=== PATIENT | male | born 1940 | race Caucasian/White ===

== ENCOUNTER → 2016-08-21 | Outpatient (CLI) | payer MEDICARE, OTHER ==
[2016-08-21 12:06] LABS: Urine Bilirubin Negative (Negative); Urine Blood Negative /uL (Negative); Urine Color Yellow (Yellow); Urine Glucose Normal (Normal); Urine Ketone Negative (Negative); Urine Nitrite Negative (Negative); Urine Urobilinogen Normal (Negative)
[2016-08-21 12:13] LABS: Basophils # (auto) 0.1 uL; Eosinophils # (auto) 0.3 uL; Eosinophils % (auto) 7.2 % (0.0-7.0); Hematocrit 43.7 % (41.0-53.0); Hemoglobin 14.4 g/dL (13.5-17.5); Lymphocytes # (auto) 1.3 uL; Lymphocytes % (auto) 32.8 % (10.0-50.0); Mean Corpuscular Hemoglobin 30.7 pg (28.0-32.0); Mean Corpuscular Volume 93.1 fL (80.0-100.0); Mean Platelet Volume 8.7 fL (7.4-10.4); Monocytes # (auto) 0.2 uL; Monocytes % (auto) 6.1 % (0.0-12.0); Neutrophils # (auto) 2.1 uL; Neutrophils % (auto) 51.9 % (37.0-80.0); Platelet Count (auto) 249 10^3/uL (140-450); Red Cell Distribution Width 13.1 % (11.6-16.0)
[2016-08-21 12:38] LABS: Albumin 3.9 g/dL (3.4-5.0); BUN/Creatinine Ratio 11.9; Bilirubin, Direct 0.2 mg/dL (0-0.2); Bilirubin, Total 1.1 mg/dL (0.2-1.0); Calcium 8.5 mg/dL (8.5-10.1); Total Protein 6.6 g/dL (6.4-8.2)
== END | disposition home or self-care (01) ==
LOC: LAB 09:12
PROVIDERS: ATTEND Internal Medicine Cardiovascular Disease
DX: I10 Essential (primary) hypertension (principal); E78.00 Pure hypercholesterolemia, unspecified; K74.1 Hepatic sclerosis; R53.81 Other malaise; E03.9 Hypothyroidism, unspecified; D64.9 Anemia, unspecified; E55.9 Vitamin D deficiency, unspecified; N39.0 Urinary tract infection, site not specified
CPT/HCPCS: 36415; 80048; 80061; 80076; 81003; 82306; 83036; 84403; 84443; 85025

== ENCOUNTER → 2016-10-30 | Outpatient (CLI) | payer MEDICARE, OTHER | END | disposition home or self-care (01) | LOC: LAB 09:12 | PROVIDERS: ATTEND Internal Medicine Cardiovascular Disease | DX: R97.20 Elevated prostate specific antigen [PSA] (principal) | CPT/HCPCS: 84153 ==

== ENCOUNTER → 2017-05-08 | Outpatient (CLI) | payer MEDICARE, OTHER | END | disposition home or self-care (01) | LOC: Rad HDHVI 08:31 | PROVIDERS: ATTEND Internal Medicine Cardiovascular Disease | DX: M47.897 Other spondylosis, lumbosacral region (principal); M46.07 Spinal enthesopathy, lumbosacral region; M25.78 Osteophyte, vertebrae | CPT/HCPCS: 72100 ==

== ENCOUNTER → 2017-08-03 | Outpatient (CLI) | payer MEDICARE, OTHER ==
[2017-08-03 12:30] LABS: Basophils # (auto) 0.1 uL; Basophils % (auto) 1.5 % (0.0-2.0); Eosinophils # (auto) 0.2 uL; Eosinophils % (auto) 3.7 % (0.0-7.0); Hematocrit 44.2 % (41.0-53.0); Hemoglobin 14.6 g/dL (13.5-17.5); Lymphocytes # (auto) 1.1 uL; Lymphocytes % (auto) 24.7 % (10.0-50.0); Monocytes # (auto) 0.3 uL; Monocytes % (auto) 6.3 % (0.0-12.0); Neutrophils % (auto) 63.8 % (37.0-80.0); Nucleated Red Blood Cells % 0.6 %; Platelet Count (auto) 219 10^3/uL (140-450); Red Cell Distribution Width 13.4 % (11.8-14.3); White Blood Cell 4.6 10^3/uL (4.4-10.8)
[2017-08-03 12:33] LABS: Urine Blood Negative /uL (Negative); Urine Specific Gravity 1.019 (1.001-1.035)
[2017-08-03 14:05] LABS: Albumin 3.8 g/dL (3.4-5.0); Bilirubin, Direct 0.3 mg/dL (0-0.2); Bilirubin, Total 1.6 mg/dL (0.2-1.0); Calcium 9.1 mg/dL (8.5-10.1); Potassium 4.2 mmol/L (3.5-5.1); Total Protein 6.8 g/dL (6.4-8.2)
[2017-08-03 14:55] LABS: Free T4 (Free Thyroxine) 1.26 ng/dL (0.89-1.76); Prostate Specific Antigen 0.16 ng/mL (0.0-4.0)
== END | disposition home or self-care (01) ==
LOC: LAB 08:32
PROVIDERS: ATTEND Internal Medicine Cardiovascular Disease
DX: I10 Essential (primary) hypertension (principal); B00.9 Herpesviral infection, unspecified; E78.00 Pure hypercholesterolemia, unspecified; R53.81 Other malaise; D64.9 Anemia, unspecified; E11.9 Type 2 diabetes mellitus without complications; E55.9 Vitamin D deficiency, unspecified; E03.9 Hypothyroidism, unspecified; K74.1 Hepatic sclerosis; R97.20 Elevated prostate specific antigen [PSA]; D51.9 Vitamin B12 deficiency anemia, unspecified; N39.0 Urinary tract infection, site not specified
CPT/HCPCS: 36415; 80048; 80061; 80076; 81003; 82306; 82607; 83036; 84153; 84403; 84439; 84443; 85025; 86695; 86696

== ENCOUNTER → 2018-02-18 | Outpatient (CLI) | payer MEDICARE, OTHER ==
[2018-02-18 12:54] LABS: Free T4 (Free Thyroxine) 1.23 ng/dL (0.89-1.76); Prostate Specific Antigen 0.2 ng/mL (0.0-4.0)
== END | disposition home or self-care (01) ==
LOC: LAB 09:08
PROVIDERS: ATTEND Internal Medicine
DX: C61 Malignant neoplasm of prostate (principal); E03.9 Hypothyroidism, unspecified; E55.9 Vitamin D deficiency, unspecified
CPT/HCPCS: 36415; 82306; 84153; 84439; 84443

== ENCOUNTER → 2018-07-01 | Outpatient (CLI) | payer MEDICARE | END | disposition home or self-care (01) | LOC: LAB 08:07 | PROVIDERS: ATTEND Internal Medicine Cardiovascular Disease | DX: C61 Malignant neoplasm of prostate (principal) | CPT/HCPCS: 84153 ==

== ENCOUNTER → 2018-08-25 | Outpatient (CLI) | payer MEDICARE, BC | END | disposition home or self-care (01) | LOC: Rad HDHVI 12:28 | PROVIDERS: ATTEND Internal Medicine Cardiovascular Disease | DX: M40.294 Other kyphosis, thoracic region (principal); R91.8 Other nonspecific abnormal finding of lung field; M48.54XA Collapsed vertebra, not elsewhere classified, thoracic region, initial encounter for fracture | CPT/HCPCS: 71046 ==

== ENCOUNTER → 2018-10-29 | Outpatient (CLI) | payer MEDICARE, BC | END | disposition home or self-care (01) | LOC: Rad HDHVI 11:04 | PROVIDERS: ATTEND Internal Medicine | DX: M25.462 Effusion, left knee (principal); M25.78 Osteophyte, vertebrae | CPT/HCPCS: 72100; 73562 ==

== ENCOUNTER → 2018-11-08 | Outpatient (CLI) | payer MEDICARE, BC | END | disposition home or self-care (01) | LOC: Rad HDHVI 09:31 | PROVIDERS: ATTEND Internal Medicine | DX: M85.9 Disorder of bone density and structure, unspecified (principal) | CPT/HCPCS: 77078 ==

== ENCOUNTER → 2018-12-24 | Outpatient (CLI) | payer MEDICARE, BC ==
[2018-12-24 11:38] LABS: Basophils # (auto) 0 uL; Eosinophils # (auto) 0.2 uL; Eosinophils % (auto) 4.7 % (0.0-7.0); Hematocrit 42.7 % (41.0-53.0); Hemoglobin 14.2 g/dL (13.5-17.5); Lymphocytes % (auto) 24.2 % (10.0-50.0); Mean Corpuscular Hemoglobin 31.2 pg (28.0-32.0); Mean Corpuscular Hgb Conc. 33.2 g/dL (32.0-36.0); Monocytes # (auto) 0.3 uL; Monocytes % (auto) 6.8 % (0.0-12.0); Neutrophils # (auto) 2.7 uL; Neutrophils % (auto) 63.3 % (37.0-80.0); Nucleated Red Blood Cells % 0.1 %; Platelet Count (auto) 220 10^3/uL (140-450); Red Blood Cells 4.54 10^6/uL (4.5-5.90); White Blood Cell 4.2 10^3/uL (4.4-10.8)
[2018-12-24 11:49] LABS: Urine Blood Negative /uL (Negative); Urine Specific Gravity 1.016 (1.001-1.035)
[2018-12-24 11:54] LABS: Free T4 (Free Thyroxine) 1.25 ng/dL (0.89-1.76); Prostate Specific Antigen 0.15 ng/mL (0.0-4.0)
[2018-12-24 11:57] LABS: Albumin 3.7 g/dL (3.4-5.0); Bilirubin, Total 1.5 mg/dL (0.2-1.0); Total Protein 6.4 g/dL (6.4-8.2)
== END | disposition home or self-care (01) ==
LOC: LAB 08:12
PROVIDERS: ATTEND Internal Medicine Cardiovascular Disease
DX: E03.9 Hypothyroidism, unspecified (principal); K90.9 Intestinal malabsorption, unspecified; C61 Malignant neoplasm of prostate; E29.1 Testicular hypofunction; N39.0 Urinary tract infection, site not specified; D51.9 Vitamin B12 deficiency anemia, unspecified; M81.0 Age-related osteoporosis without current pathological fracture; Z79.899 Other long term (current) drug therapy
CPT/HCPCS: 36415; 80053; 80061; 81003; 82306; 82607; 83036; 84153; 84403; 84439; 84443; 85025

== ENCOUNTER → 2019-07-20 | Outpatient (CLI) | payer MEDICARE, BC ==
[2019-07-20 12:26] LABS: Free T4 (Free Thyroxine) 1.3 ng/dL (0.89-1.76); Prostate Specific Antigen 0.17 ng/mL (0.0-4.0)
== END | disposition home or self-care (01) ==
LOC: LAB 09:19
PROVIDERS: ATTEND Internal Medicine
DX: C61 Malignant neoplasm of prostate (principal); E03.9 Hypothyroidism, unspecified; Z79.899 Other long term (current) drug therapy
CPT/HCPCS: 36415; 84153; 84439; 84443

== ENCOUNTER → 2020-07-02 | Outpatient (CLI) | payer MEDICARE, BC ==
[2020-07-02 14:25] LABS: Free T4 (Free Thyroxine) 1.12 ng/dL (0.89-1.76)
[2020-07-02 14:26] LABS: Prostate Specific Antigen 0.16 ng/mL (0.0-4.0)
== END | disposition home or self-care (01) ==
LOC: CHF HDHVI 12:55
PROVIDERS: ATTEND Internal Medicine Cardiovascular Disease
DX: C61 Malignant neoplasm of prostate (principal); E03.9 Hypothyroidism, unspecified; E55.9 Vitamin D deficiency, unspecified
CPT/HCPCS: 36415; 82306; 84153; 84439; 84443

== ENCOUNTER → 2021-07-15 | Outpatient (CLI) | payer MEDICARE, BC ==
[2021-07-15 12:06] LABS: Urine Blood Negative /uL (Negative); Urine Specific Gravity 1.012 (1.001-1.035)
[2021-07-15 12:15] LABS: Potassium 4.2 mmol/L (3.5-5.1)
[2021-07-15 12:17] LABS: Basophils # (auto) 0 10 ^3/uL (0-0.2); Basophils % (auto) 1.2 % (0.0-2.0); Eosinophils # (auto) 0.2 10 ^3/uL (0-0.8); Eosinophils % (auto) 5.1 % (0.0-7.0); Hematocrit 42.8 % (41.0-53.0); Lymphocytes # (auto) 0.9 10 ^3/uL (0.4-5.4); Lymphocytes % (auto) 25.5 % (10.0-50.0); Mean Corpuscular Hemoglobin 30.3 pg (28.0-32.0); Mean Corpuscular Hgb Conc. 32.6 g/dL (32.0-36.0); Mean Corpuscular Volume 93.1 fL (80.0-100.0); Monocytes # (auto) 0.3 10 ^3/uL (0-1.3); Monocytes % (auto) 7.2 % (0.0-12.0); Neutrophils # (auto) 2.2 10 ^3/uL (1.6-8.6); Red Cell Distribution Width 13.6 % (11.8-14.3); White Blood Cell 3.6 10^3/uL (4.4-10.8)
[2021-07-15 12:22] LABS: Prostate Specific Antigen 0.12 ng/mL (0.0-4.0)
[2021-07-15 12:59] LABS: Albumin 3.6 g/dL (3.4-5.0); BUN/Creatinine Ratio 10.8; Bilirubin, Total 1.2 mg/dL (0.2-1.0); Calcium 9.1 mg/dL (8.5-10.1); Total Protein 6.1 g/dL (6.4-8.2)
== END | disposition home or self-care (01) ==
LOC: LAB 08:13
PROVIDERS: ATTEND Internal Medicine
DX: C61 Malignant neoplasm of prostate (principal); D51.3 Other dietary vitamin B12 deficiency anemia; I10 Essential (primary) hypertension; E11.9 Type 2 diabetes mellitus without complications; E55.9 Vitamin D deficiency, unspecified; D64.9 Anemia, unspecified; R00.2 Palpitations; R53.1 Weakness; R30.0 Dysuria
CPT/HCPCS: 36415; 80053; 80061; 81003; 82306; 82607; 83036; 84153; 84403; 84439; 84443; 85025

== ENCOUNTER → 2021-07-24 | Outpatient (CLI) | payer MEDICARE, BC | END | disposition home or self-care (01) | LOC: Rad HDHVI 09:43 | PROVIDERS: ATTEND Internal Medicine | DX: M47.816 Spondylosis without myelopathy or radiculopathy, lumbar region (principal); M51.36 Other intervertebral disc degeneration, lumbar region | CPT/HCPCS: 72100; 73562 ==

== ENCOUNTER → 2022-01-28 | Outpatient (CLI) | payer MEDICARE, BC | END | disposition home or self-care (01) | LOC: LAB 09:09 | PROVIDERS: ATTEND Internal Medicine | DX: C61 Malignant neoplasm of prostate (principal) | CPT/HCPCS: 84153 ==

== ENCOUNTER → 2022-05-05 | Outpatient (CLI) | payer MEDICARE, BC | END | disposition home or self-care (01) | LOC: LAB 09:09 | PROVIDERS: ATTEND Internal Medicine | DX: C61 Malignant neoplasm of prostate (principal) | CPT/HCPCS: 84153 ==

== ENCOUNTER → 2022-07-07 | Outpatient (CLI) | payer MEDICARE, BC ==
[2022-07-07 10:41] LABS: Urine Blood Negative /uL (Negative); Urine Specific Gravity 1.009 (1.001-1.035)
[2022-07-07 10:50] LABS: Basophils # (auto) 0.1 10 ^3/uL (0-0.2); Basophils % (auto) 1.4 % (0.0-2.0); Eosinophils # (auto) 0.2 10 ^3/uL (0-0.8); Eosinophils % (auto) 4.3 % (0.0-7.0); Hemoglobin 13.4 g/dL (13.5-17.5); Lymphocytes # (auto) 1.1 10 ^3/uL (0.4-5.4); Mean Corpuscular Hemoglobin 31.3 pg (28.0-32.0); Mean Corpuscular Hgb Conc. 33.4 g/dL (32.0-36.0); Mean Corpuscular Volume 93.6 fL (80.0-100.0); Monocytes # (auto) 0.3 10 ^3/uL (0-1.3); Monocytes % (auto) 7.2 % (0.0-12.0); Neutrophils # (auto) 2.4 10 ^3/uL (1.6-8.6); Neutrophils % (auto) 59.1 % (37.0-80.0); Nucleated Red Blood Cells % 0.1 %; Red Blood Cells 4.28 10^6/uL (4.5-5.90); Red Cell Distribution Width 13.6 % (11.8-14.3); White Blood Cell 4.1 10^3/uL (4.4-10.8)
[2022-07-07 10:52] LABS: Albumin 3.9 g/dL (3.4-5.0); Potassium 4.8 mmol/L (3.5-5.1)
[2022-07-07 10:59] LABS: BUN/Creatinine Ratio 11.6; Bilirubin, Total 1.3 mg/dL (0.2-1.0); Total Protein 6.1 g/dL (6.4-8.2)
[2022-07-07 11:01] LABS: Free T4 (Free Thyroxine) 1.16 ng/dL (0.89-1.76)
[2022-07-07 11:02] LABS: Prostate Specific Antigen 0.15 ng/mL (0.0-4.0)
== END | disposition home or self-care (01) ==
LOC: LAB 09:12
PROVIDERS: ATTEND Internal Medicine
DX: I10 Essential (primary) hypertension (principal); E55.9 Vitamin D deficiency, unspecified; D51.3 Other dietary vitamin B12 deficiency anemia; D64.9 Anemia, unspecified; E11.9 Type 2 diabetes mellitus without complications; R00.2 Palpitations; R53.1 Weakness; R30.0 Dysuria; C61 Malignant neoplasm of prostate
CPT/HCPCS: 36415; 80053; 80061; 81003; 82306; 82607; 83036; 84153; 84403; 84439; 84443; 85025

== ENCOUNTER → 2022-10-30 | Outpatient (CLI) | payer MEDICARE, BC | END | disposition home or self-care (01) | LOC: Rad HDHVI 09:46 | PROVIDERS: ATTEND Internal Medicine Cardiovascular Disease | DX: I10 Essential (primary) hypertension (principal) | CPT/HCPCS: 93306 ==

== ENCOUNTER → 2022-11-17 | Outpatient (CLI) | payer MEDICARE, BC ==
[~2022-11-17] VITALS: Ht 167.6 cm; Wt 75.3 kg
== END | disposition home or self-care (01) ==
LOC: Rad HDHVI 08:40
PROVIDERS: ATTEND Internal Medicine Cardiovascular Disease
DX: I10 Essential (primary) hypertension (principal); R00.2 Palpitations; R06.02 Shortness of breath; E78.5 Hyperlipidemia, unspecified
CPT/HCPCS: 78452; 93017; 96374; A9500

== ENCOUNTER → 2023-12-07 | Outpatient (CLI) | payer MEDICARE, BC | END | disposition home or self-care (01) | LOC: Rad HDHVI 09:49 | PROVIDERS: ATTEND Internal Medicine Cardiovascular Disease | DX: M47.22 Other spondylosis with radiculopathy, cervical region (principal); M48.02 Spinal stenosis, cervical region; R51.9 Headache, unspecified | CPT/HCPCS: 70450; 72125 ==

== ENCOUNTER → 2023-12-15 | Outpatient (CLI) | payer MEDICARE, BC | END | disposition home or self-care (01) | LOC: Rad HDHVI 12:53 | PROVIDERS: ATTEND Internal Medicine Cardiovascular Disease | DX: I10 Essential (primary) hypertension (principal); R07.89 Other chest pain | CPT/HCPCS: 93306 ==

== ENCOUNTER → 2023-12-28 | Outpatient (CLI) | payer MEDICARE, BC ==
[~2023-12-28] VITALS: Ht 177.8 cm; Wt 74.8 kg
== END | disposition home or self-care (01) ==
LOC: Rad HDHVI 13:26
PROVIDERS: ATTEND Internal Medicine Cardiovascular Disease
DX: I10 Essential (primary) hypertension (principal); R07.89 Other chest pain; E78.00 Pure hypercholesterolemia, unspecified; R00.2 Palpitations; C61 Malignant neoplasm of prostate
CPT/HCPCS: 78452; 93017; 96374; A9500

== ENCOUNTER → 2024-11-30 | Outpatient (CLI) | payer MEDICARE, BC | END | disposition home or self-care (01) | LOC: Rad HDHVI 15:11 | PROVIDERS: ATTEND Internal Medicine Cardiovascular Disease | DX: M79.669 Pain in unspecified lower leg (principal) | CPT/HCPCS: 93925 ==